=== PATIENT | male | born 2000 | race Two or more races ===

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

== ENCOUNTER 2019-07-30 02:56 | Emergency (ER) | payer MEDICAID ==
[~2019-07-30] VITALS: Ht 177.8 cm; Wt 75.0 kg
[~2019-07-30 02:56] MED LIST: KEFLEX500 MG PO; NORCO 7.5/325 T1 TA1 PO
[2019-07-30 03:03] VITALS: Ht 177.8 cm; Wt 75.0 kg
[2019-07-30 03:37] LABS: BASOPHILS 0.2 % (0-2); EOSINOPHILS 0.6 % (0-7); HEMATOCRIT 43.4 % (42.0-54.0); HEMOGLOBIN 15.4 g/dL (13.5-17.5); IMMATURE GRANULOCYTES 1.2 % (0-5); LYMPHOCYTES 30.6 % (15-50); MCH 31.6 pg (26.0-34.0); MCHC 35.5 g/dL (31.0-37.0); MCV 88.9 fL (80.0-100.0); MEAN PLATELET VOLUME 9.5 fL (7.4-10.4); MONOCYTES 8.8 % (2-11); NEUTROPHILS 58.6 % (40-80); PLATELET COUNT 291 10x3/uL (130-400); RBC 4.88 10x6/uL (4.20-6.10); RDW 12.6 % (11.5-14.5); WBC 10.8 10x3/uL (4.8-10.8)
[2019-07-30 04:15] VITALS: BP 139/95
== END 2019-07-30 04:16 | disposition home or self-care (01) ==
LOC: D.ER 02:56
PROVIDERS: Emergency Medicine
DX: R04.2 Hemoptysis (principal)

== ENCOUNTER 2020-05-30 13:22 | Emergency (ER) | payer OTHER ==
[~2020-05-30] VITALS: Ht 177.8 cm; Wt 76.4 kg
[2020-05-30 13:31] VITALS: Ht 177.8 cm; Wt 76.4 kg
[2020-05-30 14:22] LABS: BASOPHILS 0.1 % (0-2); EOSINOPHILS 1.2 % (0-7); HEMATOCRIT 41.3 % (42.0-54.0); HEMOGLOBIN 13.9 g/dL (13.5-17.5); IMMATURE GRANULOCYTES 1.7 % (0-5); LYMPHOCYTES 28.8 % (15-50); MCH 30.2 pg (26.0-34.0); MCHC 33.7 g/dL (31.0-37.0); MCV 89.6 fL (80.0-100.0); MEAN PLATELET VOLUME 9.5 fL (7.4-10.4); MONOCYTES 8.8 % (2-11); NEUTROPHILS 59.4 % (40-80); PLATELET COUNT 269 10x3/uL (130-400); RBC 4.61 10x6/uL (4.20-6.10); RDW 13.4 % (11.5-14.5); WBC 8.4 10x3/uL (4.8-10.8)
[2020-05-30 14:29] LABS: CALC OSMOLALITY 268 mosm/kg (275-300); CALCIUM 8.8 mg/dL (8.5-10.1); CHLORIDE - SERUM 102 mmol/L (98-107); CREATININE - SERUM 1.1 mg/dL (0.6-1.3); GLUCOSE 90 mg/dL (74-106); POTASSIUM - SERUM 4.3 mmol/L (3.5-5.1); SODIUM 134 mmol/L (136-145); UREA NITROGEN 16 mg/dL (7-18); eGFR NON AFRICAN AMERICAN 90 mL/min (90-120)
[2020-05-30 14:37] LABS: BILIRUBIN NEGATIVE (NEGATIVE); KETONE NEGATIVE (NEGATIVE); NITRITE NEGATIVE (NEGATIVE); UROBILINOGEN NORMAL (NORMAL)
[2020-05-30 14:38] LABS: ALBUMIN 4.2 g/dL (3.4-5.0); ALKALINE PHOSPHATASE 112 U/L (30-120); ALT (SGPT) 43 U/L (10-68); AMYLASE - SERUM 34 U/L (25-115); LIPASE 55 U/L (73-393); PROTEIN - SERUM 7.6 g/dL (6.4-8.2); TROPONIN-I < 0.017 ng/mL (0.000-0.060)
[2020-05-30] MEDS ORDERED: MIRALAX17 GM PO (17:02)
[2020-05-30 17:20] VITALS: BP 128/79
== END 2020-05-30 17:20 | disposition home or self-care (01) ==
LOC: D.ER 13:22
DX: R10.31 Right lower quadrant pain (principal); K59.00 Constipation, unspecified; B20 Human immunodeficiency virus [HIV] disease